=== PATIENT | female | born 1960 | race Caucasian/White ===

== ENCOUNTER → 2017-02-03 | Outpatient (CLI) | payer OTHER ==
[~2017-02-03] MED LIST: GLCSR500 PO; IBUP600T44 PO; INSDGI SC; NATE120T PO; SITA100T3 PO; SYN112 PO
--- NOTE | 2017-02-03 13:20 | DIAGNOSTIC IMAGING REPORT ---
RIGHT FOOT MIN 3 VIEWS ROUTINE CLINICAL HISTORY: PAIN IN RIGHT FOOT Right pain COMPARISON: None. DISCUSSION: Heel spur. Otherwise negative study. No evidence for fracture. Bony alignment is anatomic. IMPRESSION: Heel spur. Otherwise negative study The above report was generated using voice recognition software. It may contain grammatical, syntax or spelling errors. Electronically signed by: Phil Martins M.D. 02/03/2017 1:18 PM Dictated Date/Time: 02/03/2017 1:17 PM
== END | disposition home or self-care (01) ==
LOC: C.RADBC 12:56
PROVIDERS: ATTEND Family Medicine
DX: M79.671 Pain in right foot (principal)

== ENCOUNTER 2020-10-17 17:02 | Inpatient (IN) ==
[2020-10-17] MEDS ORDERED: ASPIRIN CHEW 324 MG PO STA (17:17)
--- NOTE | 2020-10-17 17:31 | Emergency Department Note ---
Impression & Plan Acute non-ST elevation myocardial infarction (NSTEMI), Chest pain, Abnormal EKG ED Provider Note NAME: GINNA RIBEIRO AGE: 60 SEX: F : 1960 ARRIVES VIA: Walk-In INFORMANT: Patient, ED PROVIDER(S): Wagner Rodriguez DO CHIEF COMPLAINT: Chest pain HPI: The patient is a 60-year-old female who presented to the emergency [facility] for an evaluation of chest pain. The patient states that she has been noticing anterior chest pain which has been ongoing for 2 days. The patient states that she has been noticing the pain ever since Tuesday evening. The pain is not necessarily reproducible or exertionally related. She states that sometimes she notices it when she takes a deep breath and when she is trying to exert herself but it is not consistent. The patient was feeling fatigued. She is scheduled to go to [place] tomorrow with her significant other. She went to [facility] for a Covid test prior to traveling. She was sent to the emergency department because of an abnormal EKG. At this time she states the pain is mild but is continued. She denies having any abdominal pain or vomiting. She is had no nausea. She denies having any fever or cough. The patient denies having any lower extremity swelling or pain. ROS: See above HPI for pertinent positives & negatives. A total of 10 systems reviewed and were otherwise negative. PAST MEDICAL HISTORY: See Below PAST SURGICAL HISTORY: See Below FAMILY HISTORY: See Below SOCIAL HISTORY: See Below HOME MEDICATIONS: See Below ALLERGIES: See Below VITALS: See Below PHYSICAL EXAMINATION: GENERAL: Patient is awake alert in no acute distress patient is resting comfortably and showing no signs of anxiety EYES: The conjunctivae are clear. The pupils are round and reactive. EARS, NOSE, MOUTH AND THROAT: The nose is without any evidence of any deformity. With NECK: The neck is nontender and supple. RESPIRATORY: Normal respiratory effort is noted there is no evidence of wheezing rhonchi or rales CARDIOVASCULAR: Regular rate and rhythm noted there no murmurs rubs or gallops normal S1 normal S2. GASTROINTESTINAL: The abdomen is soft. Abdomen is nontender. MUSCULOSKELETAL/EXTREMITIES: There is no evidence of gross deformity full range of motion is noted in the hips and shoulders. SKIN: There is no obvious evidence of any rash. There are no petechiae, pallor or cyanosis noted. NEUROLOGIC: Patient is awake alert and oriented x3. MEDICAL DECISION MAKING: The patient is a 60-year-old female who has a history of diabetes who presented to the emergency department for an evaluation of chest discomfort. The patient has been having waxing and waning of symptoms over the last 3 days. She thought she had COVID-19 and went to [facility] to be evaluated for COVID-19. While s he was there she had an EKG which was abnormal. She was sent to the emergency department for further evaluation. The patient's EKG continues to show ischemic changes. The patient's troponin was elevated. I discussed the patient's laboratory and radiographic studies with her. She was treated with aspirin initially in the emergency department. She was also treated with heparin IV. I discussed the patient's condition with the on-call [facility] skip pit worker. I also discussed her case with the on-call [facility] hospitalist. Triage Nursing notes reviewed. Prior medical records reviewed Vital Signs: reviewed and remarkable for elevated blood pressure. Differential diagnosis: Cardiac ischemia, aortic dissection, pulmonary embolism, pneumothorax, pneumonia, pericarditis, myocarditis, esophageal rupture, GERD, cholecystitis, pancreatitis, musculoskeletal, as well as other pathologies. ER treatment provided: See below Diagnostics interpreted by me: ECG: EKG was obtained in the emergency department. My interpretation is normal sinus rhythm at 74 bpm. PVCs were noted. Inferior apical and low lateral ST depressions were noted. This was compared to a tracing from December 062009. The ST segment abnormalities are new compared to the previous tracing The patient's EKG from [facility] was also reviewed. This appears to be consistent with sinus rhythm at 74 bpm. There was no ectopy. Persistence of the previously noted ST depressions were appreciated on this tracing as well. A second EKG was obtained in the emergency department while the patient was pain-free. This revealed normal sinus rhythm at 71 bpm. There was no ectopy. Persistence of the ST segment abnormalities was noted in the inferior apical and low lateral leads however the ST segment depression was improved compared to the earlier tracing. Cardiac Monitoring: An order was placed for continuous cardiac monitoring. The monitor shows a rate of 85 bpm with sinus rhythm. Laboratory studies: As stated above and show below. Imaging studies: See below Consultation(s): 1840: I discussed this case with the on-call [facility] skip pit worker, Dr. Smith. 1919: I discussed this case with Dr. Lugo who is on-call for the [facility] hospitalist group. ED COURSE: Procedures: none PDMP:reviewed and no issues Critical Care: I have personally spent greater than 60 minutes of critical care time in the direct management of this patient. This includes bedside care, interpretation of diagnostic studies, and testing, discussion with consultants, patient, and family members, and other required patient management activities. This 60 minutes is in excess of all separately billable procedures. Past Med/Surg History Medical History (Updated 10/17/20 @ 19:06 by Wagner Rodriguez DO) Hypothyroidism (acquired) Insulin dependent diabetes mellitus Surgical History (Updated 10/17/20 @ 18:30 by Wagner Rodriguez DO) History of cholecystectomy Social History (Updated 10/17/20 @ 18:30 by Wagner Rodriguez DO) Smoking Status: Never smoker Hx Alcohol Use: No Preferred Language: Belizean Feels Safe at Home: Yes Allergies Allergies Allergy/AdvReac Type Severity Reaction Status Date / Time No Known Allergies Unverified 10/17/20 18:44 Home Meds Home Medications Medication Instructions Recorded Confirmed acetaminophen [Tylenol Extra 500 mg PO Q6H PRN 10/17/20 10/17/20 Strength] cholecalciferol (vitamin D3) 50,000 unit PO DAILY 10/17/20 10/17/20 insulin glargine [Lantus U-100 45 unit SUBCUT QAM 10/17/20 10/17/20 Insulin] levothyroxine [Synthroid] 175 mcg PO SUMOWEFR 10/17/20 10/17/20 levothyroxine [Synthroid] 200 mcg PO TUTHSA 10/17/20 10/17/20 metformin 1,000 mg PO BID 10/17/20 10/17/20 nateglinide 120 mg PO TIDM 10/17/20 10/17/20 Results & Data (ED) Vital Signs Vital Signs - 24 hr 10/17/20 17:10 10/17/20 17:52 10/17/20 18:03 Temperature 36.5 C Temperature Source Temporal Artery Scan Pulse Rate 87 Pulse Rate [Right Finger] 74 Pulse Rhythm [Right Finger] Regular Pulse Strength [Right Finger] Normal Respiratory Rate 18 18 18 Respiratory Effort / Characteristics Non-Labored Spontaneous Respiratory Depth Normal Blood Pressure 129/76 Blood Pressure [Left Arm] 151/101 H Blood Pressure Mean 93 Blood Pressure Mean [Left Arm] 117 Blood Pressure Position [Left Arm] Lying Pulse Oximetry 98 98 97 Oxygen Delivery Method Room Air Room Air Room Air Sepsis Recent Fever Within 48 Hours No Sepsis New/Unexplained Change in Mental Status N/A Sepsis Action Taken by Nursing No Action Required Home Medications Current Medication List: was personally reviewed by me Laboratory Data Attestation: I reviewed the patient's lab results. Result diagrams: 10/17/20 17:40 10/17/20 17:40 Lab Results 10/17/20 10/17/20 10/17/20 Range/Units 17:40 17:40 17:40 WBC 11.61 H (4.8-10.8) K/uL RBC 4.83 (4.2-5.4) M/uL Hgb 13.5 (12.0-16.0) g/dL Hct 39.1 (37-47) % MCV 81.0 (80-100) fL MCH 28.0 (25-34) pg MCHC 34.5 (32-36) g/dL RDW Std Deviation 38.5 (36.4-46.3) fL RDW Coeff of Jian 13.1 (11.5-14.5) % Plt Count 298 (130-400) K/uL MPV 8.9 (7.4-10.4) fL Immature Gran % (Auto) 0.3 % Neut % (Auto) 70.2 % Lymph % (Auto) 19.6 % Beaver % (Auto) 9.3 % Eos % (Auto) 0.4 % Baso % (Auto) 0.2 % Neut # (Auto) 8.16 H (1.4-6.5) K/uL Lymph # (Auto) 2.27 (1.2-3.4) K/uL Beaver # (Auto) 1.08 H (0.11-0.59) K/uL Eos # (Auto) 0.05 (0-0.5) K/uL Baso # (Auto) 0.02 (0-0.2) K/uL Immature Gran # (Auto) 0.03 H (0.00-0.02) K/uL PT 10.4 (9.0-12.0) Seconds INR 1.0 (0.9-1.1) APTT 27.8 (21.0-31.0) Seconds PTT Ratio 1.1 D-Dimer 210 (0-500) ug/L FEU Sodium 133 L (136-145) mmol/L Potassium 3.6 (3.5-5.1) mmol/L Chloride 101 (98-107) mmol/L Carbon Dioxide 26 (21-32) mmol/L Anion Gap 6.0 (3-11) BUN 18 (7-18) mg/dl Creatinine 0.90 (0.6-1.2) mg/dl Est Cr Clr Drug Dosing 75.7 ml/min Est GFR ( Amer) 79.4 Est GFR (Non-Af Amer) 68.5 BUN/Creatinine Ratio 20.2 H (10-20) Glucose 150 H (70-99) mg/dl Calcium 9.6 (8.5-10.1) mg/dl Total Bilirubin 1.6 H (0.2-1) mg/dl AST 177 H (15-37) U/L ALT 43 (12-78) U/L Alkaline Phosphatase 122 H (45-117) U/L Troponin I 29.800 H* (0-0.045) ng/ml Total Protein 8.2 (6.4-8.2) gm/dl Albumin 3.9 (3.4-5.0) gm/dl Globulin 4.3 H (2.5-4.0) gm/dl Albumin/Globulin Ratio 0.9 (0.9-2) Lipase 27 L (73-393) U/L COVID-19 Eval Order SARS-CoV-2 (PCR) (Negative) Influenza Type A (PCR) (Neg) Influenza Type B (PCR) (Neg) RSV (RT-PCR) (Neg) 10/17/20 10/17/20 Range/Units Unknown Unknown WBC (4.8-10.8) K/uL RBC (4.2-5.4) M/uL Hgb (12.0-16.0) g/dL Hct (37-47) % MCV (80-100) fL MCH (25-34) pg MCHC (32-36) g/dL RDW Std Deviation (36.4-46.3) fL RDW Coeff of Jian (11.5-14.5) % Plt Count (130-400) K/uL MPV (7.4-10.4) fL Immature Gran % (Auto) % Neut % (Auto) % Lymph % (Auto) % Beaver % (Auto) % Eos % (Auto) % Baso % (Auto) % Neut # (Auto) (1.4-6.5) K/uL Lymph # (Auto) (1.2-3.4) K/uL Beaver # (Auto) (0.11-0.59) K/uL Eos # (Auto) (0-0.5) K/uL Baso # (Auto) (0-0.2) K/uL Immature Gran # (Auto) (0.00-0.02) K/uL PT (9.0-12.0) Seconds INR (0.9-1.1) APTT (21.0-31.0) Seconds PTT Ratio D-Dimer (0-500) ug/L FEU Sodium (136-145) mmol/L Potassium (3.5-5.1) mmol/L Chloride (98-107) mmol/L Carbon Dioxide (21-32) mmol/L Anion Gap (3-11) BUN (7-18) mg/dl Creatinine (0.6-1.2) mg/dl Est Cr Clr Drug Dosing ml/min Est GFR ( Amer) Est GFR (Non-Af Amer) BUN/Creatinine Ratio (10-20) Glucose (70-99) mg/dl Calcium (8.5-10.1) mg/dl Total Bilirubin (0.2-1) mg/dl AST (15-37) U/L ALT (12-78) U/L Alkaline Phosphatase (45-117) U/L Troponin I (0-0.045) ng/ml Total Protein (6.4-8.2) gm/dl Albumin (3.4-5.0) gm/dl Globulin (2.5-4.0) gm/dl Albumin/Globulin Ratio (0.9-2) Lipase (73-393) U/L COVID-19 Eval Order CovFluRsv at [facility] SARS-CoV-2 (PCR) NEGATIVE (Negative) Influenza Type A (PCR) Negative (Neg) Influenza Type B (PCR) Negative (Neg) RSV (RT-PCR) Negative (Neg) Administered Medications Heparin Sodium/Dextrose (Heparin Sodium/Dextrose) 25,000 units in 500 mls @ 27 mls/hr IV .[id number] [facility]; Protocol Stop: 11/16/20 18:29 Last Admin: 10/17/20 18:53 Dose: 1,350 units/hr, 27 mls/hr Documented by: [id number] Cosigned by: [id number] Discontinued Medications Aspirin (Aspirin Chew 324 Mg) 324 mg PO NOW STA Stop: 10/17/20 17:18 Last Admin: 10/17/20 17:28 Dose: 324 mg Documented by: [id number] Heparin Sodium (Porcine) (Heparin Bolus Ed Use Only) 5,000 units IV NOW STA Stop: 10/17/20 18:44 Last Admin: 10/17/20 18:53 Dose: 5,000 units Documented by: [id number] Cosigned by: [id number] Imaging Data Radiologist's Impression: Chest X-Ray 10/17/20 17:17 SINGLE VIEW CHEST CLINICAL HISTORY: Atypical chest pain. FINDINGS: An AP, portable, upright chest radiograph is compared to study dated 12/06/2009. The cardiomediastinal silhouette is unremarkable. The lungs and pleural spaces are clear. No pneumothorax is seen. The skeletal structures appear osteopenic. The bony thorax is grossly intact. IMPRESSION: No active disease in the chest. ACT 112: Negative or not required by law. Electronically signed by: Rashad Villareal M.D. 10/17/2020 5:58 PM Discharge Plan Visit Data Chief Complaint: Cardiac Assessment Stated Complaint: HAD AN ABNORMAL EKG AT [facility] ED Provider: Wagner Rodriguez Discharge Problem: Acute non-ST elevation myocardial infarction (NSTEMI), Chest pain, Abnormal EKG Patient Disposition: Being Evaluated by Hospitalist Condition: Good Forms Stand Alone Forms: My [facility] Prescriptions Prescriptions: No Action nateglinide 120 mg tablet 120 mg PO TIDM RF: 0 levothyroxine [Synthroid] 175 mcg tablet 175 mcg PO SUMOWEFR RF: 0 Lantus U-100 Insulin 100 unit/mL solution 45 unit SUBCUT QAM RF: 0 acetaminophen [Tylenol Extra Strength] 500 mg Tablet 500 mg PO Q6H PRN (Reason: Pain) RF: 0 levothyroxine [Synthroid] 200 mcg tablet 200 mcg PO TUTHSA RF: 0 metformin 500 mg tablet extended release 24 hr 1,000 mg PO BID RF: 0 cholecalciferol (vitamin D3) 1,250 mcg (50,000 unit) capsule 50,000 unit PO DAILY RF: 0 Referrals Referrals: Andrew Le [Primary Care Provider] - Discharge Problem: Chest pain Qualifiers: Chest pain type: unspecified Qualified Code(s): R07.9 - Chest pain, unspecified
[2020-10-17 17:54] LABS: Basophils # (auto) 0.02 K/uL (0-0.2); Basophils % (auto) 0.2 %; Eosinophils # (auto) 0.05 K/uL (0-0.5); Eosinophils % (auto) 0.4 %; Hematocrit (blood only) 39.1 % (37-47); Hemoglobin 13.5 g/dL (12.0-16.0); Immature Granulocytes # (auto) 0.03 K/uL (0.00-0.02); Immature Granulocytes % (auto) 0.3 %; Lymphocytes # (auto) 2.27 K/uL (1.2-3.4); Lymphocytes % (auto) 19.6 %; Mean Corpuscular Hgb Conc 34.5 g/dL (32-36); Mean Platelet Volume 8.9 fL (7.4-10.4); Monocytes # (auto) 1.08 K/uL (0.11-0.59); Monocytes % (auto) 9.3 %; Neutrophils # (auto) 8.16 K/uL (1.4-6.5); Neutrophils % (auto) 70.2 %; Platelet Count 298 K/uL (130-400); RDW Coefficient of Variation 13.1 % (11.5-14.5); RDW Standard Deviation 38.5 fL (36.4-46.3); Red Blood Count 4.83 M/uL (4.2-5.4); White Blood Count 11.61 K/uL (4.8-10.8)
--- NOTE | 2020-10-17 18:00 | XRay Report ---
SINGLE VIEW CHEST CLINICAL HISTORY: Atypical chest pain. FINDINGS: An AP, portable, upright chest radiograph is compared to study dated 12/06/2009. The cardiom ediastinal silhouette is unremarkable. The lungs and pleural spaces are clear. No pneumothorax is see n. The skeletal structures appear osteopenic. The bony thorax is grossly intact. IMPRESSION: No active disease in the chest. ACT 112: Negative or not required by law. Electronically signed by: Rashad Villareal M.D. 10/17/2020 5:58 PM
[2020-10-17 18:07] LABS: D Dimer 210 ug/L FEU (0-500); Partial Thromboplastin Ratio 1.1; Partial Thromboplastin Time 27.8 Seconds (21.0-31.0); Prothrombin Time 10.4 Seconds (9.0-12.0)
[2020-10-17 18:12] LABS: Albumin Level 3.9 gm/dl (3.4-5.0); BUN Creatinine Ratio 20.2 (10-20); Calcium 9.6 mg/dl (8.5-10.1); Creatinine Clr Calc Pharmacy 75.7 ml/min; Est GFR (African American) 79.4; Est GFR (Non-African American) 68.5; Potassium 3.6 mmol/L (3.5-5.1)
[2020-10-17 18:25] LABS: Albumin Globulin Ratio 0.9 (0.9-2); Bilirubin,Total 1.6 mg/dl (0.2-1); Globulin 4.3 gm/dl (2.5-4.0); Total Protein 8.2 gm/dl (6.4-8.2); Troponin I 29.8 ng/ml (0-0.045)
[2020-10-17] MEDS ORDERED: Heparin IV Adult Wt-Based Standard WITH Bolus Protocol IV STA (18:28)
[2020-10-17] MEDS ORDERED: HEPARIN SODIUM/DEXTROSE 25,000 UNITS/500 ML BAG IV SCH (18:30)
[2020-10-17 18:43] LABS: Influenza A virus by PCR Negative (Neg); Influenza B virus by PCR Negative (Neg); RSV by PCR Negative (Neg); SARS CoV2 RNA(COVID-19) InHosp NEGATIVE (Negative)
[2020-10-17] MEDS ORDERED: Heparin BOLUS **ED Use Only IV STA (18:43)
[2020-10-17] MEDS ORDERED: HEPARIN SOD (PORCINE) 1000 UNIT/ML IV ONE (18:45)
--- NOTE | 2020-10-17 19:23 | History & Physical Report ---
Date of Service October 17, 2020 Assessment & Plan (1) Acute non-ST elevation myocardial infarction (NSTEMI): Difficult to differentiate ongoing symptoms are cardiac or noncardiac since she has atypical symptoms in the first place. Troponin I 29.8 in the ER. EKG with anterior lateral ST depressions. ASA 324mg PO given in ER, continue aspirin 81mg PO daily Started on low dose heparin drip with bolus in ER Start metoprolol 25mg PO BID, atorvastatin 80mg QAM Lipid profile and HbA1C with AM labs NPO Consult cardiology - discussed with interventionalist Dr Apple and will start on nitroglycerin IV drip and admit to ICU (2) Chest pain: (3) Abnormal EKG: (4) Hypothyroidism (acquired): TSH 0.105, free T4 1.68 Continue usual home regimen given minimally outside normal ranges in setting of NSTEMI. Repeat in 4-6 weeks (5) Insulin dependent diabetes mellitus: Hold metformin. HbA1C with AM labs. Consult pharmacy for glycemic control in setting of NSTEMI. Admission and Anticipated Discharge Date Admission Date: October 17, 2020 History of Present Illness Chief Complaint: Chest pain Primary Care Provider: Andrew Le Shruthi Aguilar is a 60-year-old female with T2DM who presents to the ER on the advice of [facility] due to an abnormal EKG and chest pain for the past 2 days. She reports having initial symptoms of chest pain on Tuesday after eating - mainly having a generalized feeling of feeling unwell. She was able to walk her dog without exertional nature of her pain. Following morning woke up with indigestion and sleeping a lot. recommended getting COVID test, therefore she went to urgent care today and given her ongoing symptoms of atypical sharp chest tightness/pain an EKG was performed with ST depressions in anterior lateral leads therefore she was sent to the emergency room. In the ER EKG showed anterolateral ST depression and TWI, troponin I 29.8. Initially she felt she was not having any ongoing chest pain however on further questioning she reported ongoing similar intermittent sharp chest pain (mild). Allergies Allergy/AdvReac Type Severity Reaction Status Date / Time No Known Allergies Unverified 10/17/20 18:44 Home Medications Medication Instructions Recorded Confirmed Type Lantus U-100 Insulin 45 unit SUBCUT QAM 10/17/20 10/17/20 History acetaminophen [Tylenol Extra 500 mg PO Q6H PRN 10/17/20 10/17/20 History Strength] cholecalciferol (vitamin D3) 50,000 unit PO DAILY 10/17/20 10/17/20 History levothyroxine [Synthroid] 175 mcg PO SUMOWEFR 10/17/20 10/17/20 History levothyroxine [Synthroid] 200 mcg PO TUTHSA 10/17/20 10/17/20 History metformin 1,000 mg PO BID 10/17/20 10/17/20 History nateglinide 120 mg PO TIDM 10/17/20 10/17/20 History Past Med/Surg History Medical History Hypothyroidism (acquired) Insulin dependent diabetes mellitus Surgical History History of cholecystectomy Social History Smoking Status: Never smoker Second Hand Exposure: No; Hx Alcohol Use: No Hx Substance Use: No Preferred Language: Moroccan Communication Ability: Effective Lithographic General 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 Required: No Beliefs That Will Affect Care: None Current Living Situation: Spouse Feels Safe at Home: Yes Assistive Devices: None Review of Systems Review of Systems: All systems reviewed & are unremarkable except as noted in HPI & below Physical Exam Constitutional: well developed and well nourished; no acute distress Eyes: + anicteric sclerae; normal pupil size Respiratory: normal respiratory effort, lungs clear to auscultation Cardiovascular: RRR, no murmur, no edema Chest (Breasts): Additional Comments: Nonreproducible chest pain on palpation Gastrointestinal (Abdomen): normal bowel sounds, soft, nontender, no hepatosplenomegaly Musculoskeletal: no cyanosis or clubbing, extremities motor strength 5/5 Skin: no rashes, warm and dry Neurologic: moves all extremities and awake; not confused Psychiatric: A+Ox3, euthymic affect Results & Data Results & Data ([facility]) Vital Signs (Past 12 Hours) Vital Signs Temp Pulse Pulse Resp BP BP Pulse Ox 10/17/20 18:03 74 18 151/101 H 97 10/17/20 17:52 18 98 10/17/20 17:10 36.5 C 87 18 129/76 98 Diagnostic Findings SINGLE VIEW CHEST IMPRESSION: No active disease in the chest. Medications Administered ER Medications Given: ASA 324mg PO daily Heparin IV bolus and drip ECG Indication: chest pain Rhythm: normal sinus Findings: + PVC, + ST depression (Anterior) and + T-wave inversion (Anterolateral) Comparison ECG Date: from (December 06, 2009) Change: the following changes noted (acute ischemic changes are new) Code Status & VTE Plan Code Status Full VTE Prophylaxis Plan VTE Prophylaxis will be ordered: Yes PG Care Time/CCT Total # of Minutes Spent Total Time Spent with Patient: Total time spent is greater than 50% in coordination of care (as documented) at patient's floor/unit and/or counseling patient: Coding Level of Care Code 94318 Initial Inpt Care Lvl 3 Diagnoses Acute non-ST elevation myocardial infarction (NSTEMI) I21.4 Chest pain R07.9 Chest pain type: unspecified Abnormal EKG R94.31 Hypothyroidism (acquired) E03.9 Insulin dependent diabetes mellitus (1) Chest pain Chest pain type: unspecified Qualified Code(s): R07.9 - Chest pain, unspecified
[2020-10-17] MEDS ORDERED: METOPROLOL TARTRATE 25 MG TAB PO STA (19:26)
[2020-10-17] MEDS ORDERED: NITROGLYCERIN 2% OINTMENT 30GM TUBE ONE (19:27)
[2020-10-17] MEDS ORDERED: NITROGLYCERIN SL 0.4 MG/TAB TAB ONE (19:28)
[2020-10-17] MEDS ORDERED: NITROGLYCERIN 2% OINTMENT 30GM TUBE EXT SCH (19:30)
[2020-10-17] MEDS ORDERED: STAT IV Infusion **Titration per Protocol STA (20:03)
[2020-10-17] MEDS ORDERED: NITROGLYCERIN/D5W 100MCG/ML 250 ML IV SCH (20:15)
[2020-10-17] MEDS ORDERED: NITROGLYCERIN SL 0.4 MG/TAB TAB SL PRN (20:36)
[2020-10-17] MEDS ORDERED: ONDANSETRON INJ 2 MG/ML 2 ML VIAL IV PRN (20:36)
[2020-10-17] MEDS ORDERED: ICU PROTOCOL FOR HYPERGLYCEMIA PRN (20:36)
[2020-10-17 20:45] LABS: Thyroid Stimulating Hormone 0.105 uIu/ml (0.300-4.500); Troponin I 27.4 ng/ml (0-0.045)
[2020-10-17] MEDS ORDERED: LEVOTHYROXINE SODIUM 175 MCG TABLET PO SCH (21:00)
[2020-10-17 21:01] LABS: T4 Free Thyroxine 1.68 ng/dl (0.8-1.6)
--- NOTE | 2020-10-17 21:18 | Critical Care Consultation ---
Date of Consultation October 17, 2020 Assessment & Plan (1) Admitted to intensive care unit: Reason Critically Ill: 60-year-old female with intermittent chest pain and elevated troponin requiring close hemodynamic monitoring and symptom monitoring for possible progression of underlying myocardial event. NEURO - * CAM ICU: NEGATIVE CARDIAC/VASCULAR - * NSTEMI: * Presents w/ ST depressions in lateral leads and troponin >29. * Chest pain intermittent. * Started on Heparin gtt per Cardiology. * Started on Nitro gtt w/ brief return of chest pain. * Hemodynamically stable to this point. * Interventionalist did evaluate patient at bedside in the ICU. * Troponin trending down. * Plans for catheterization tomorrow. * Continue Heparin/Nitro gtts. * Add high dose statin. * Continue aspirin. * Emergent intervention w/ any changes. * CAD w/ unstable angina most likely and most necessary to r/o immediately, consider further testing for ??myocarditis pending cath results. Patient does remember picking a tick off of herself in the last few weeks, but reports it was not attached. Consider addition of Lyme serology pending cath results as well as current presentation does not appear c/w Lyme carditis. * EKG: NSR @ [address] Depressions laterally. QTc 473 ms. * Monitor on telemetry. RESPIRATORY - * No h/o Pulmonary disease. * CXR w/o acute findings. * Saturating well on room air. GI/NUTRITION - * NPO after midnight w/ pending AM cath. RENAL/LYTES - * No significant electrolyte derangements. * Hold Metformin per protocol s/p IV contrast administration. - * No concerns at this time. ENDO - * DMII * BSGs per unit protocol. ISS --> gtt per unit policy. * Hypothyroidism: * Continue home Rx HEME - * Stable H&H ID - * Will add Lyme Serology LINES/IV ACCESS - * PIVs x2 DVT PROPHYLAXIS - * Heparin gtt * SCDs I have personally spent 45 minutes of critical care time in the direct managemen t of this patient. This is a life/limb threatening event. This includes time spent evaluating patient, direct bedside care, chart review, placing orders, interpretation of diagnostic studies, discussion with consultants, patient, and family members, as well as other required patient management activities. This time is exclusive of all separately billable procedures, and teaching time and separate from and in addition to any other critical care service time. Thank you for allowing us to participate in the care of this patient. Please refer to my attending physician's documentation for any further recommendations. (2) Acute non-ST elevation myocardial infarction (NSTEMI): (3) Insulin dependent diabetes mellitus: (4) Hypothyroidism (acquired): (5) Chest pain: (6) Abnormal EKG: History of Present Illness Attending Physician: Cruz Lugo MD History of Present Illness Patient is a 60-year-old female with a significant past medical history of diabetes and hyperglycemia who presented to the emergency department from [facility] with a 2-day history of waxing waning chest discomfort. She had EKG changes with ST depressions and troponin greater than 29. She was started on heparin drip and eventually required nitroglycerin drip with return of chest d iscomfort. Patient admitted to the ICU for ongoing monitoring with intent for intervention with any changes or increasing troponin. Upon evaluation in the ICU, the patient is awake, alert, and oriented. She reports that she initially noticed chest pain 2 days ago. She states that the symptoms have been at rest mostly. She does not notice any increase in chest pain with exertion. She states that prior to closure of exercise facilities, she was swimming 5 days a week at the local [facility] and her activity tolerance was thought to be improving. Over the last few weeks, however, she states that she has been exercising her dogs through training activities and has noticed some increasing shortness of breath on exertion. Particularly, she complains of some shortness of breath while walking up an incline plane. She states that she has had to stop and catch her breath which is abnormal for her. She has not noticed any shortness of breath at rest. She denies any pleuritic pain. She denies any chest pain with these exertional shortness of breath episodes. She reports that the most intense her pain has been has been a 2/10 and she describes it as a "prick" sensation on her LEFT upper chest. She reports no other symptoms including dizziness, lightheadedness, nausea, vomiting, or lightheadedness. Patient reports a significant family history as her mother from a large [place] when she was young as well. Allergies Allergy/AdvReac Type Severity Reaction Status Date / Time No Known Allergies Unverified 10/17/20 18:44 Home Medications Medication Instructions Recorded Confirmed Type acetaminophen [Tylenol Extra 500 mg PO Q6H PRN 10/17/20 10/17/20 History Strength] cholecalciferol (vitamin D3) 50,000 unit PO DAILY 10/17/20 10/17/20 History insulin glargine [Lantus U-100 45 unit SUBCUT QAM 10/17/20 10/17/20 History Insulin] levothyroxine [Synthroid] 175 mcg PO SUMOWEFR 10/17/20 10/17/20 History levothyroxine [Synthroid] 200 mcg PO TUTHSA 10/17/20 10/17/20 History metformin 1,000 mg PO BID 10/17/20 10/17/20 History nateglinide 120 mg PO TIDM 10/17/20 10/17/20 History Patient History Medical History Hypothyroidism (acquired) Insulin dependent diabetes mellitus Surgical History History of cholecystectomy Social History Smoking Status: Never smoker Second Hand Exposure: No; Do You Dip or Chew Tobacco: No; Tobacco Cessation Education Requested by Patient: No Hx Alcohol Use: No Hx Substance Use: No Preferred Language: [place] Communication Ability: Effective Vp Organizational Development Required: No Beliefs That Will Affect Care: None Current Living Situation: Spouse Other Information That Helps Us Care for You: No Feels Safe at Home: Yes Assistive Devices: None Review of Systems Review of Systems: A complete 10 point review of systems was reviewed with the patient with pertinent positives and negatives as per history of present illness. All else were negative. Physical Exam Physical Exam: VITAL SIGNS - Vital signs and nursing notes were reviewed. GENERAL - 60-year-old female appearing her stated age who is in no acute distress. Communicates well with provider and answers questions appropriately. HEAD - NC/AT. EYES - PERRL with EOMI bilaterally. Sclera anicteric. Palpebral conjunctiva pink and moist with no injection noted. EARS - No deformities of external structures noted on gross examination bilaterally. NOSE - Midline and without cyanosis. No epistaxis or purulent drainage noted. MOUTH/OROPHARYNX - Without perioral cyanosis. NECK - Neck with FROM. LUNGS - Chest wall symmetric without accessory muscle use, intercostals retractions, or central cyanosis. Normal vesicular breath sounds CTA B/L. No wheezes, rales, or rhonchi appreciated. CARDIAC - RRR with S1/S2. No murmur, rubs, or gallops appreciated. No reproducible tenderness to palpation appreciated over the anterior chest wall. ABDOMEN - Abdominal contour flat without pulsations or visible masses. BS normoactive all four quadrants. No tenderness, palpable masses, hepatosplenomegaly, or ascites noted. EXTREMITIES - No clubbing or peripheral cyanosis. No pretibial edema present. +3/5 radial and dorsalis pedis pulses palpated throughout. +5/5 strength noted in UE/LE bilaterally. NEUROLOGIC - Cranial nerves II through XII grossly intact. Sensory intact to light touch throughout. PSYCH - A&Ox3 and cooperates fully with examiner. Pt is very pleasant and interacts well with examiner. Results & Data Results & Data ([facility]) Vital Signs (Past 12 Hours) Vital Signs Temp Pulse Pulse Resp BP BP Pulse Ox 10/17/20 20:35 74 18 129/74 98 10/17/20 20:00 71 22 143/68 H 95 10/17/20 19:37 85 23 108/72 95 10/17/20 19:30 78 27 H 152/84 H 97 10/17/20 19:07 74 19 156/83 H 97 10/17/20 18:30 72 19 154/94 H 97 10/17/20 18:03 74 18 151/101 H 97 10/17/20 17:52 18 98 10/17/20 17:10 36.5 C 87 18 129/76 98 Coding Level of Care Code Critical Care 1st 30-74 mins Diagnoses Admitted to intensive care unit Z78.9 Acute non-ST elevation myocardial infarction (NSTEMI) I21.4 Insulin dependent diabetes mellitus Hypothyroidism (acquired) E03.9 Chest pain R07.9 Chest pain type: unspecified Abnormal EKG R94.31 Time Spent (min) 45 (1) Chest pain Chest pain type: unspecified Qualified Code(s): R07.9 - Chest pain, unspecif ied
--- NOTE | 2020-10-17 21:33 | Communication Note ---
Date of Service: October 17, 2020 Interventional cardiology Seen and examined at bedside Delayed presentation of MT vs Myocarditis symptom-free stable hemodynamics Heparin drip High intensity statin Beta godfrey Cath in AM Risks,benefits d/w patient Consent form signed
[2020-10-17] MEDS ORDERED: PHARMACY GLYCEMIC MGMT CONSULT PRN (21:35)
[2020-10-18 03:41] LABS: Basophils # (auto) 0.01 K/uL (0-0.2); Basophils % (auto) 0.1 %; Eosinophils # (auto) 0.04 K/uL (0-0.5); Eosinophils % (auto) 0.4 %; Hematocrit (blood only) 33.5 % (37-47); Hemoglobin 11.2 g/dL (12.0-16.0); Immature Granulocytes # (auto) 0.02 K/uL (0.00-0.02); Immature Granulocytes % (auto) 0.2 %; Lymphocytes # (auto) 1.88 K/uL (1.2-3.4); Lymphocytes % (auto) 16.7 %; Mean Corpuscular Hemoglobin 26.9 pg (25-34); Mean Corpuscular Hgb Conc 33.4 g/dL (32-36); Mean Corpuscular Volume 80.5 fL (80-100); Mean Platelet Volume 8.6 fL (7.4-10.4); Monocytes # (auto) 1.09 K/uL (0.11-0.59); Monocytes % (auto) 9.7 %; Neutrophils # (auto) 8.22 K/uL (1.4-6.5); Neutrophils % (auto) 72.9 %; Platelet Count 247 K/uL (130-400); Red Blood Count 4.16 M/uL (4.2-5.4); White Blood Count 11.26 K/uL (4.8-10.8)
[2020-10-18 03:58] LABS: BUN Creatinine Ratio 27.1 (10-20); Calcium 8.6 mg/dl (8.5-10.1); Creatinine Clr Calc Pharmacy 94.6 ml/min; Est GFR (Non-African American) 89.8; Magnesium 1.5 mg/dl (1.8-2.4); Potassium 3.5 mmol/L (3.5-5.1)
[2020-10-18 04:00] LABS: Partial Thromboplastin Ratio 1.6; Partial Thromboplastin Time 43.2 Seconds (21.0-31.0)
[2020-10-18 04:02] LABS: Phosphorus 2.3 mg/dl (2.5-4.9)
--- NOTE | 2020-10-18 04:19 | Communication Note ---
Date of Service: October 18, 2020 0315: Patient woke with c/o chest burning pressing and nausea. Was contacted by nursing staff. By the time I had evaluated the patient at bedside within a minute or 2, the patient was symptom-free. She states that her symptoms lasted for approximately 30 seconds. She states that the pressure was worse than the pain that she had experienced previously. Nursing staff did contact phlebotomy who did arrive at bedside to obtain morning labs including troponin. Patient clinically appears stable at this point. 0410: I was approached by nursing staff and the patient was complaining of return of nausea and symptoms of chest discomfort. Upon evaluation at bedside, the patient does appear slightly uncomfortable and is complaining of nausea. She reports that she had an additional episode of chest heaviness which was more intense than previous. She reports that the pain now seems to be taking her breath away. The symptoms are new and worse than she is experienced in the past. Patient denies pain at this time as she reports that it was previously transient. Patient does look slightly uncomfortable despite denying active chest pain at this time. 0416: Called Dr. Ambika MD per his request during previous interaction. Explained current change in symptomatology. He instructed me to activate heart alert. 0420: Heart Alert activated. Patient reassessed again at bedside and explained current situation. She acknowledges understanding and reports that she would like to call her to provide him with an update. I have personally spent 45 minutes of critical care time in the direct management of this patient. This is a life/limb threatening event. This includes time spent evaluating patient, direct bedside care, chart review, placing orders, interpretation of diagnostic studies, discussion with consultants, patient, and family members, as well as other required patient management activities. This time is exclusive of all separately billable procedures, and teaching time and separate from and in addition to any other critical care service time. Coding Level of Care Code Critical Care 1st 30-74 mins Time Spent (min) 45
[2020-10-18] MEDS ORDERED: HEPARIN (PORCINE) 1000 UNIT/ML 10 ML (CATH LAB USE ONLY) ONE ×2 (04:40→05:07)
[2020-10-18] MEDS ORDERED: fentaNYL citrate 100 MCG/2 ML VIAL ONE (04:41)
[2020-10-18] MEDS ORDERED: MIDAZOLAM HCL 1 MG/ML 2ML VIAL ONE (04:41)
[2020-10-18] MEDS ORDERED: niCARdipine HCL INJ 2.5 MG/ML 10 ML AMP ONE (04:41)
[2020-10-18] MEDS ORDERED: NITROGLYCERIN/D5W 100MCG/ML 20ML SYR ONE (04:42)
--- NOTE | 2020-10-18 05:23 | Communication Note ---
Date of Service: October 18, 2020 0500: color laboratory technician called. Patient with triple-vessel disease and need for balloon pump and transfer to tertiary care facility. 0520: Presented to [facility]. Call placed to [facility]. Spoke with Drs. Scott (cardiac surgery) and Dr. Talbot (ICU). Patient accepted in transfer. Patient to be brought back to the ICU w/ balloon pump in place awaiting [facility] transport. 0604: Called patient's at patient's request. Provided update. Patient to be transferred to [facility] via [facility] to CVICU Room 1120. 06:55: [facility] presents to ICU. Patient to be actively transported at this time. I have personally spent 65 minutes of critical care time in the direct management of this patient. This is a life/limb threatening event. This includes time spent evaluating patient, direct bedside care, chart review, placing orders, interpretation of diagnostic studies, discussion with consultants, patient, and family members, as well as other required patient management activities. This time is exclusive of all separately billable procedures, and teaching time and separate from and in addition to any other critical care service time. Coding Level of Care Code Critical Care ea addt'l 30 min Time Spent (min) 65
[2020-10-18 06:28] LABS: Estimated Average Glucose 151 mg/dl; Hemoglobin A1C 6.9 % (4.5-5.6)
[2020-10-18] MEDS ORDERED: LEVOTHYROXINE SODIUM 200 MCG TABLET PO SCH (06:30)
--- NOTE | 2020-10-18 06:31 | Post Operative Brief Note ---
Cardiology Brief Post Op Date of Surgery October 18, 2020 Pre & Post Diagnosis Operation Date: 10/18/20 04:45 Preop Dx: Acute coronary syndrome Post op: Multivessel CAD IABP deployed Full report to follow Procedure full report to follow Block Layer Chad Apple MD Car Distributor Gilda Estimated Blood Loss 5 Findings Consistent with Post-Op Diagnosis
--- NOTE | 2020-10-18 06:34 | Pre Anesthesia Assessment ---
Date of Service October 18, 2020 Pre Sedation Assessment Vital Signs Temp Pulse Pulse Resp BP BP Pulse Ox 10/17/20 20:36 36.8 C 73 82 17 138/76 138/76 98 10/17/20 20:35 74 18 129/74 98 10/17/20 20:00 71 22 143/68 H 95 10/17/20 19:37 85 23 108/72 95 10/17/20 19:30 78 27 H 152/84 H 97 10/17/20 19:07 74 19 156/83 H 97 10/17/20 18:30 72 19 154/94 H 97 10/17/20 18:03 74 18 151/101 H 97 10/17/20 17:52 18 98 10/17/20 17:10 36.5 C 87 18 129/76 98 Pre-Sedation Airway Assessment Smoking Status: Never smoker Notes The planned sedation has been discussed with the patient. Informed Consent was obtained. I have identified the patient, determined the appropriateness of sedation and have assessed the patient immediately prior to the procedure. All medicine(s) and interventions are by my order.
--- NOTE | 2020-10-18 06:35 | Post Anesthesia Assessment ---
Date of Service October 18, 2020 Post Sedation Assessment Vital Signs Temp Pulse Pulse Resp BP BP Pulse Ox 10/17/20 20:36 36.8 C 73 82 17 138/76 138/76 98 10/17/20 20:35 74 18 129/74 98 10/17/20 20:00 71 22 143/68 H 95 10/17/20 19:37 85 23 108/72 95 10/17/20 19:30 78 27 H 152/84 H 97 10/17/20 19:07 74 19 156/83 H 97 10/17/20 18:30 72 19 154/94 H 97 10/17/20 18:03 74 18 151/101 H 97 10/17/20 17:52 18 98 10/17/20 17:10 36.5 C 87 18 129/76 98 Discharge Sedation Level of Care: Higher Level of Care Post Sedation Plan On clinical assessment, the patient appears to have tolerated the sedation without complications. Patient is recovering as anticipated. Patient will continue to be monitored by nursing and may be discharged when sedation discharge criteria are met per below protocol. Upon Completions of procedure up to 15 minutes continue every 5 minute vital signs and the P.A.R. score; then discharge to a Phase I or Fast Track to Phase II per the following guidelines: * Discharge Patient to appropriate Phase II area if PAR is 8 or greater or return to pre- procedure baseline. The post - procedure orders will be as directed. * If PAR score is less than 8 or not return to pre-procedure baseline then patient will follow Phase I monitoring till PAR is reached for Phase II. The Phase I may be done in procedure room or may call to secure a Phase I area. * If naloxone or flumazenil are used for reversal, hold in Phase I for continued monitoring from when last reversal dose was given for a minimum of 60 minutes or longer pending the nurse and/or physician discretion of patient condition before discharge to Phase II. Please call the Sedation Physician to re-evaluate and complete post-note for discharge to Phase II area. Do NOT discharge from procedure sedation or Phase 1 until post- sedation evaluation note is complete by procedure /sedation MD Sedation Discharge Instructions to be given to the patient at discharge to home.
--- NOTE | 2020-10-18 06:43 | Cardiac Catheterization ---
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 Cardiac Status Clinical evaluation leading to the procedure CAD Presenation: Non STEMI Anginal Classification: CCS II Heart Failure: No Cardiogenic Shock within 24 Hours: No Cardiac Arrest within 24 Hours: No Imaging Studies Past 6 Months: No Stress Studies Past 6 Months: No STEMI OR Non-STEMI Symptom Onset Date: 10/15/20 Thrombolytics: No Coronary Anatomy Dominant: Right Left Main (% Stenosis): Ostial (0), Proximal (0), Mid (0) and Distal (0) LAD (% Stenosis): Ostial (0), Proximal (0), Mid (40) and Distal (0) D1 (% Stenosis): Ostial (90), Proximal (0), Mid (0) and Distal (0) D2 (% Stenosis): Ostial (0), Proximal (0), Mid (0), Distal (0) and Normal (0) D3 (% Stenosis): Ostial (0), Proximal (0) and Mid (0) Circumflex (% Stenosis): Ostial (0), Proximal (0), Mid (100) and Distal RCA (% Stenosis): Ostial (0), Proximal (90), Mid (60) and Distal (100) R PDA (% Stenosis): Ostial (0), Proximal (0), Mid (0), Distal (0) and Normal R PL1 (% Stenosis): Normal Ramus (% Stenosis): Proximal (50) Diagnostic Physicians Name: Chad Apple MD Status: Urgent Closure Device Percutaneous Entry Location: Radial Closure Device: Radial Band Recommendations: CABG Cardiac Cath Procedure Full Procedure Date October 18, 2020 Pre-Procedure Diagnosis Pre-Procedure Diagnosis: Acute Coronary Syndrome AUC Score AUC Score: 9 Post-Procedure Diagnosis Post-Procedure Diagnosis: Severe CAD Procedure(s) Performed Procedure(s) Performed: Coronary Angiography, Left Heart Cath and IABP Ctrs Chad Apple MD Estimated Blood Loss Estimated Blood Loss: None (5cc) Summary of Findings multivessel CAD involving RCA, LCx, D! Hemodynamics Rest Ao:: 112/ Final Ao: 114/ LV: 112 Recommendations Recommendations: CABG Radiation Exposure (mGy) 636mGy Contrast (mls) 50 I attest to the content of the Intraoperative Record and any orders documented therein. Any exceptions are noted below. PG Care Time/CCT Total # of Minutes Spent Total Time Spent with Patient: Total time spent is greater than 50% in coordination of care (as documented) at patient's floor/unit and/or counseling patient:
--- NOTE | 2020-10-18 06:52 | Cardiac Catheterization ---
[facility] Data: Inverted Block Operator Cardiac Status Clinical evaluation leading to the procedure Diagnostic Physicians Name: Chad Apple MD Closure Device Recommendations: CABG Cardiac Cath Procedure Full Procedure Date October 18, 2020 Pre-Procedure Diagnosis Pre-Procedure Diagnosis: Acute Coronary Syndrome AUC Score AUC Score: 9 Post-Procedure Diagnosis Post-Procedure Diagnosis: Severe CAD Procedure(s) Performed Procedure(s) Performed: Coronary Angiography, Left Heart Cath and IABP Cross Roller Chad Apple MD Estimated Blood Loss Estimated Blood Loss: None (5cc) Summary of Findings multivessel CAD involving RCA, LCx, D! Recommendations Recommendations: CABG I attest to the content of the Intraoperative Record and any orders documented therein. Any exceptions are noted below. PG Care Time/CCT Total # of Minutes Spent Total Time Spent with Patient: Total time spent is greater than 50% in coordination of care (as documented) at patient's floor/unit and/or counseling patient:
--- NOTE | 2020-10-18 06:59 | Cardiac Catheterization ---
[facility] Data: Loan Manager Cardiac Status Clinical evaluation leading to the procedure CAD Presenation: Non STEMI Diagnostic Physicians Name: Chad Apple MD Closure Device Recommendations: CABG Cardiac Cath Procedure Full Procedure Date October 18, 2020 Pre-Procedure Diagnosis Pre-Procedure Diagnosis: Acute Coronary Syndrome AUC Score AUC Score: 9 Post-Procedure Diagnosis Post-Procedure Diagnosis: Severe CAD Procedure(s) Performed Procedure(s) Performed: Coronary Angiography, Left Heart Cath and IABP Hse Manager Chad Apple MD Estimated Blood Loss Estimated Blood Loss: None (5cc) Summary of Findings Urgent Cardiac catheterization Indication: Acute coronary syndrome delayed presentation Patient was brought to the cardiac Loan Manager urgently and prepped and draped in sterile fashion Conscious sedation was administered 6 Trinidadian sheath was secured into the right radial artery after administration of local anesthetic 6 Trinidadian JL 3.5 Trinidadian JR4 was used for left and right coronary angiography 6 Trinidadian JR4 diagnostic catheter was used for hemodynamics Hemodynamics Left ventriculogram 112/1/2 Aortic pressure 112/74 Right coronary artery is a moderate-sized dominant vessel The proximal RCA has a 90% stenosis with slow flow in the mid RCA has a 50 to 60% diffuse stenosis The distal RCA is occluded Collateral supply to the PDA and PLV as well as the very distal RCA supplied by the LAD. These appeared to be good targets for bypass The left main is of normal caliber without stenosis It trifurcates into the LAD, the ramus intermedius, and circumflex The LAD is a moderate-sized dominant vessel, the proximal LAD is free of disease The mid LAD has a 50% stenosis The distal RCA has mild luminal irregularities The ostium of the first major diagonal branch has an 80 to 90% stenosis The second and third major diagonal branches are free of disease The very proximal circumflex is free of disease It gives off a large obtuse marginal 1 branch This obtuse marginal branch is occluded but collateral supply to this branch is noted from the LAD Given the intermittent ongoing chest pain The decision was made to proceed with intra-aortic balloon pump A micropuncture needle was used to access the right common femoral artery after which angiography confirmed up an appropriate stick The arteriotomy site was gradually upsized to an 8 Trinidadian hold after which an inflated balloon pump 50 cc balloon was inserted in standard fashion and set at 1:1 Postprocedure, there was an augmented pressure of 50 mmHg above the [place] mean The device was secured in place TR band was used to secure right radial artery hemostasis Patient was transferred to ICU in stable condition Conclusion Multivessel CAD involving the RCA, circumflex, and the first major diagonal branch Ongoing angina resolved after deployment of intra-aortic balloon pump Hemodynamics Rest Ao:: 112/74 Final Ao: 115/84 LV: 112/07/21 Recommendations Recommendations: CABG Radiation Exposure (mGy) 636mgy Contrast (mls) 50 I attest to the content of the Intraoperative Record and any orders documented therein. Any exceptions are noted below. PG Care Time/CCT Total # of Minutes Spent Total Time Spent with Patient: Total time spent in direct care of this patient 3 hours including appropriate supervision of this patient was in the ICU and handing the patient over to the [facility] team Total time spent is greater than 50% in coordination of care (as documented) at patient's floor/unit and/or counseling patient:
--- NOTE | 2020-10-18 07:03 | Cardiac Catheterization ---
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 Chad Apple MD Estimated Blood Loss Estimated Blood Loss: None (5cc) Summary of Findings Urgent Cardiac catheterization Indication: Acute coronary syndrome delayed presentation Patient was brought to the cardiac Lay Out And Detail Drafter urgently and prepped and draped in sterile fashion Conscious sedation was administered 6 Hungarian sheath was secured into the right radial artery after administration of local anesthetic 6 Hungarian JL 3.5 Hungarian JR4 was used for left and right coronary angiography 6 Hungarian JR4 diagnostic catheter was used for hemodynamics Hemodynamics Left ventriculogram 112/1/2 Aortic pressure 112/74 Right coronary artery is a moderate-sized dominant vessel The proximal RCA has a 90% stenosis with slow flow in the mid RCA has a 50 to 60% diffuse stenosis The distal RCA is occluded Collateral supply to the PDA and PLV as well as the very distal RCA supplied by the LAD. These appeared to be good targets for bypass The left main is of normal caliber without stenosis It trifurcates into the LAD, the ramus intermedius, and circumflex The LAD is a moderate-sized dominant vessel, the proximal LAD is free of disease The mid LAD has a 50% stenosis The distal RCA has mild luminal irregularities The ostium of the first major diagonal branch has an 80 to 90% stenosis The second and third major diagonal branches are free of disease The very proximal circumflex is free of disease It gives off a large obtuse marginal 1 branch This obtuse marginal branch is occluded but collateral supply to this branch is noted from the LAD Given the intermittent ongoing chest pain The decision was made to proceed with intra-aortic balloon pump A micropuncture needle was used to access the right common femoral artery after which angiography confirmed up an appropriate stick The arteriotomy site was gradually upsized to an 8 Hungarian hold after which an inflated balloon pump 50 cc balloon was inserted in standard fashion and set at 1:1 Postprocedure, there was an augmented pressure of 50 mmHg above the [place] band mean The device was secured in place TR band was used to secure right radial artery hemostasis Patient was transferred to ICU in stable condition Conclusion Multivessel CAD involving the RCA, circumflex, and the first major diagonal branch Ongoing angina resolved after deployment of intra-aortic balloon pump Hemodynamics Rest Ao:: 112/ Final Ao: 112 LV: 112/07/21 Recommendations Recommendations: CABG Radiation Exposure (mGy) 636 Contrast (mls) 50 I attest to the content of the Intraoperative Record and any orders documented therein. Any exceptions are noted below. PG Care Time/CCT Total # of Minutes Spent Total Time Spent with Patient: Total time spent is greater than 50% in coordination of care (as documented) at patient's floor/unit and/or counseling patient:
[2020-10-18] MEDS ORDERED: MAGNESIUM SULFATE / D5W 1 GM/100 ML BAG IV SCH (07:30)
--- NOTE | 2020-10-18 08:36 | Discharge Summary ---
Date of Service October 18, 2020 No billing for this note. Admission HPI Per Admitting Provider Shruthi Aguilar is a 60-year-old female with T2DM who presents to the ER on the advice of [facility] due to an abnormal EKG and chest pain for the past 2 days. She reports having initial symptoms of chest pain on Tuesday after eating - mainly having a generalized feeling of feeling unwell. She was able to walk her dog without exertional nature of her pain. She has had similar Following morning woke up with indigestion and sleeping a lot. recommended getting COVID test. In the ER EKG showed anterolateral ST depression and TWI, troponin I 29.8. Initially she felt she was not having any ongoing chest pain however on further questioning she reported ongoing similar intermittent sharp chest pain. Principal Diagnosis NSTEMI Triple vessel disease Discharge Exam Not seen prior to discharge. Discharge Data Allergies Allergy/AdvReac Type Severity Reaction Status Date / Time No Known Allergies Unverified 10/17/20 18:44 Consultations 10/17/20 18:30 ED Decision to Admit Stat 10/17/20 18:48 Consult Cardiology Stat 10/17/20 20:00 Consult Recovery Room Rn Routine 10/17/20 20:36 Consult Recovery Room Rn Routine 10/18/20 05:30 Burn CD for patient Stat Procedures Performed Operation Date: 10/18/20 04:45 Actual Procedures p Cath, Left with Cors and Vent - Ronny Ny MD s Cineradiography w/Routine Exam - Ronny Ny MD s Intra-Aortic Balloon Insertion - Ronny Ny MD Ordered Studies 10/18/20 04:41 CL Cath Imgs for PACS use only Urgent Hospital Course (1) Acute non-ST elevation myocardial infarction (NSTEMI): Difficult to differentiate ongoing symptoms are cardiac or noncardiac since she has atypical symptoms in the first place. Troponin I 29.8 in the ER. EKG with anterior lateral ST depressions. ASA 324mg PO given in ER, continue aspirin 81mg PO daily Started on low dose heparin drip with bolus in ER Start metoprolol 25mg PO BID, atorvastatin 80mg QAM Lipid profile and HbA1C with AM labs NPO Consult cardiology - discussed with interventionalist Dr Apple and will start on nitroglycerin IV drip and admit to ICU - More chest pain overnight. Cath done early on 10/18 with finding of multi- vessel disease. She was discharged to tertiary care center with plan for CABG. I did not see the patient prior to her discharge. (2) Chest pain: (3) Abnormal EKG: (4) Hypothyroidism (acquired): TSH 0.105, free T4 1.68 Continue usual home regimen given minimally outside normal ranges in setting of NSTEMI. Repeat in 4-6 weeks (5) Insulin dependent diabetes mellitus: Hold metformin. HbA1C with AM labs. Consult pharmacy for glycemic control in setting of NSTEMI. Total Time Total Time Spent Total Time Spent (In Minutes): 35 Discharge Plan Discharge Items Patient Disposition: Transfer Acute Care Hospital Reason For Visit: NSTEMI Discharge Diagnosis: Tripe vessel disease Condition on Discharge: Good Activity: Resume your previous activity Non-emergency contact: Primary Care Provider Call non-emergency contact if: your symptoms worsen Follow-up/Referrals: Andrew Le [Primary Care Provider] - Diet: Heart Healthy Addtl Attending Provider Instructions: Pending Studies at Discharge: No Stand-Alone Forms: [facility] Skilled Items Patient informed of condition?: No DNR: No Discharge Level of Care: Other Communicable Disease: No Discharge Prognosis: Deteriorating Lines: Peripheral IV Urinary Catheter: No Medications and DC Order Prescriptions: Continued nateglinide 120 mg tablet 120 mg PO TIDM RF: 0 levothyroxine [Synthroid] 175 mcg tablet 175 mcg PO SUMOWEFR RF: 0 Lantus U-100 Insulin 100 unit/mL solution 45 unit SUBCUT QAM RF: 0 acetaminophen [Tylenol Extra Strength] 500 mg Tablet 500 mg PO Q6H PRN (Reason: Pain) RF: 0 levothyroxine [Synthroid] 200 mcg tablet 200 mcg PO TUTHSA RF: 0 metformin 500 mg tablet extended release 24 hr 1,000 mg PO BID RF: 0 cholecalciferol (vitamin D3) 1,250 mcg (50,000 unit) capsule 50,000 unit PO DAILY RF: 0 Discharge Orders: Discharge Order (Routine); Ordered 10/18/20 Ordered By: Eulalio Patricia Admission Data Admit Date/Time: 10/17/20 19:17 Attending Provider: Eulalio Patricia Admit Provider: Cruz Lugo Primary Care Provider: Andrew Le Other Providers: Edward Acuna ; Dayron Smith ; Eulalio Patricia Coding Level of Care Code None Diagnoses Acute non-ST elevation myocardial infarction (NSTEMI) I21.4 Chest pain R07.9 Chest pain type: unspecified Abnormal EKG R94.31 Hypothyroidism (acquired) E03.9 Insulin dependent diabetes mellitus
--- NOTE | 2020-10-18 08:40 | Electrocardiogram Report ---
Test Reason : Blood Pressure : / mmHG Vent. Rate : 074 BPM Atrial Rate : 074 BPM P-R Int : 138 ms QRS Dur : 106 ms QT Int : 438 ms P-R-T Axes : 000 173 -54 degrees QTc Int : 486 ms Sinus rhythm with occasional Premature ventricular complexes limb lead reversal Old Inferior infarct Abnormal ECG When compared with ECG of 06-DEC-2009 16:04, ST depression in Anterior leads now present Premature ventricular complexes now present Limb lead reversal now present Reconfirmed by Dayron Smith ([id number]) on 10/18/2020 8:42:47 AM Referred By: REFERRED SELF Confirmed By:Dayron Smith
--- NOTE | 2020-10-18 08:41 | Electrocardiogram Report ---
Test Reason : Blood Pressure : / mmHG Vent. Rate : 071 BPM Atrial Rate : 071 BPM P-R Int : 128 ms QRS Dur : 098 ms QT Int : 436 ms P-R-T Axes : 015 003 218 degrees QTc Int : 473 ms Normal sinus rhythm Old Inferior infarct (cited on or before 17-OCT-2020) Abnormal ECG When compared with ECG of 17-OCT-2020 17:21, (unconfirmed) Premature ventricular complexes are no longer Present Left posterior fascicular block is no longer Present (likely was lead placement error on prior ECG) Confirmed by Dayron Smith ([id number]) on 10/18/2020 8:41:07 AM Referred By: REFERRED SELF Confirmed By:Dayron Smith
--- NOTE | 2020-10-18 08:43 | Electrocardiogram Report ---
Test Reason : Blood Pressure : / mmHG Vent. Rate : 086 BPM Atrial Rate : 086 BPM P-R Int : 126 ms QRS Dur : 110 ms QT Int : 370 ms P-R-T Axes : 026 010 224 degrees QTc Int : 442 ms Normal sinus rhythm Old Inferior infarct (cited on or before 17-OCT-2020) Abnormal ECG When compared with ECG of 17-OCT-2020 19:03, No significant change was found Confirmed by Dayron Smith ([id number]) on 10/18/2020 8:43:16 AM Referred By: REFERRED SELF Confirmed By:Dayron Smith
[2020-10-18] MEDS ORDERED: ATORVASTATIN 40 MG TAB PO SCH (09:00)
[2020-10-18] MEDS ORDERED: ASPIRIN 81 MG ECTAB PO SCH (09:00)
[2020-10-18] MEDS ORDERED: METOPROLOL TARTRATE 25 MG TAB PO SCH (09:00)
--- NOTE | 2020-10-18 10:18 | Electrocardiogram Report ---
Test Reason : Blood Pressure : / mmHG Vent. Rate : 080 BPM Atrial Rate : 080 BPM P-R Int : 146 ms QRS Dur : 108 ms QT Int : 402 ms P-R-T Axes : 069 013 217 degrees QTc Int : 463 ms Normal sinus rhythm Left atrial enlargement Old Inferior infarct (cited on or before 17-OCT-2020) Abnormal ECG When compared with ECG of 18-OCT-2020 03:18, No significant change was found Confirmed by Dayron Smith ([id number]) on 10/18/2020 10:17:52 AM Referred By: REFERRED SELF Confirmed By:Dayron Smith
[2020-10-18] MEDS ORDERED: INSULIN ASPART 100 UNITS/ML 3 ML PEN SC SCH (21:45)
--- NOTE | 2020-10-19 13:13 | Cardiology Consultation ---
Date of Consultation October 19, 2020 History of Present Illness Attending Physician: Eulalio Patricia MD History of Present Illness Patient was admitted 10/18/2020 and evaluated by mortar mixer operator, underwent catheterization which showed triple-vessel disease on 10/19/2020, and was transferred to a tertiary care center that morning. I did not evaluate the patient at any time, therefore I did not perform a cardiology consultation. Allergies Allergy/AdvReac Type Severity Reaction Status Date / Time No Known Allergies Unverified 10/17/20 18:44 Home Medications Medication Instructions Recorded Confirmed Type Lantus U-100 Insulin 45 unit SUBCUT QAM 10/17/20 10/17/20 History acetaminophen [Tylenol Extra 500 mg PO Q6H PRN 10/17/20 10/17/20 History Strength] cholecalciferol (vitamin D3) 50,000 unit PO DAILY 10/17/20 10/17/20 History levothyroxine [Synthroid] 175 mcg PO SUMOWEFR 10/17/20 10/17/20 History levothyroxine [Synthroid] 200 mcg PO TUTHSA 10/17/20 10/17/20 History metformin 1,000 mg PO BID 10/17/20 10/17/20 History nateglinide 120 mg PO TIDM 10/17/20 10/17/20 History Patient History Medical History Hypothyroidism (acquired) Insulin dependent diabetes mellitus Surgical History History of cholecystectomy Social History Smoking Status: Never smoker Second Hand Exposure: No; Hx Alcohol Use: No Hx Substance Use: No Preferred Language: Tamazight Communication Ability: Effective Milk Tester Required: No Beliefs That Will Affect Care: None Current Living Situation: Spouse Feels Safe at Home: Yes Assistive Devices: None PG Care Time/CCT Total # of Minutes Spent Total Time Spent with Patient: Total time spent is greater than 50% in coordination of care (as documented) at patient's floor/unit and/or counseling patient: Coding Level of Care Code None
== END 2020-10-18 08:12 | disposition short-term general hospital (02) | DRG 272 ==
LOC: ED 17:02 → SUATTDRO 19:17 → 1E 19:17